=== PATIENT | female | born 1990 | race African-American/Black ===

== ENCOUNTER 2024-08-27 22:40 | Emergency (ER) | payer SELFPAY ==
[~2024-08-27] VITALS: Ht 165.1 cm; Wt 90.0 kg
[~2024-08-27 22:40] MED LIST: CONCEPT OB PO; IBUPROFEN400 MG PO; MOTRIN600 MG/TAB PO
[2024-08-27 22:53] VITALS: BP 123/77
[2024-08-27 23:01] VITALS: BP 115/76
[2024-08-27] MEDS ORDERED: KETOROLAC TROMETHAMINE 30 MG/ML SDV IV ONE (23:10)
[2024-08-27] MEDS ORDERED: ACETAMINOPHEN 500 MG TAB PO ONE (23:10)
[2024-08-27] MEDS ORDERED: ONDANSETRON HCl 4 MG/2 ML SDV IV ONE (23:10)
[2024-08-27] MEDS ORDERED: SODIUM CHLORIDE 0.9% 1,000 ML IV ONE (23:10)
[2024-08-28 00:02] LABS: BASO% 0.4 % (0-3); HEMATOCRIT 41.8 % (37.0-47.0); HEMOGLOBIN 14.2 g/dl (12.0-16.0); IMMATURE GRANULOCYTES 0.2 % (0.0-5.0); LYMPH% 28.7 % (15-41); MEAN CELL VOLUME 84.3 fL CALC (80.0-100.0); MEAN CORPUSCULAR HGB 28.6 pG CALC (26.0-32.0); MONO% 14.3 % (2-13); NEUT# 2.85 thou/uL (2.00-7.15); NEUT% 56.4 % (42-76); RED BLOOD COUNT 4.96 mill/uL (4.20-5.60); RED CELL DISTRI WIDTH 11.9 % (11.5-15.5)
[2024-08-28 00:33] LABS: ALBUMIN 4.1 g/dL (3.2-5.0); BILIRUBIN, TOTAL 0.7 mg/dL (0.02-1.3); CREATININE 0.6 mg/dL (0.5-1.0); POTASSIUM 2.9 mmol/l (3.5-5.1); TOTAL PROTEIN 7.8 g/dL (6.3-8.2)
[2024-08-28] MEDS ORDERED: POTASSIUM CHLORIDE 20 MEQ/TAB PO ONE (00:55)
[2024-08-28 01:00] VITALS: BP 115/76
[2024-08-28] MEDS ORDERED: DOXYCYCLINE HYCLATE 100 MG/CAP PO ONE (01:00)
[2024-08-28] MEDS ORDERED: VIBRAMYCIN100 M2 PO (01:01)
== END 2024-08-28 01:27 | disposition home or self-care (01) | DRG 195 ==
LOC: ED 22:40
PROVIDERS: Family Medicine
DX: J18.9 Pneumonia, unspecified organism (principal); Z20.822 Contact with and (suspected) exposure to COVID-19
CPT/HCPCS: J2405